=== PATIENT | female | born 1940 | race Caucasian/White ===

== ENCOUNTER 2019-05-20 13:39 | Emergency (ER) | payer OTHER, MEDICARE ==
[~2019-05-20] VITALS: Ht 149.9 cm; Wt 49.9 kg
[2019-05-20] MEDS ORDERED: Ultram50 MG PO (15:30)
== END 2019-05-20 16:32 | disposition home or self-care (01) ==
LOC: ER 13:39
DX: S39.012A Strain of muscle, fascia and tendon of lower back, initial encounter (principal); R07.89 Other chest pain; Z88.8 Allergy status to other drugs, medicaments and biological substances; V43.62XA Car passenger injured in collision with other type car in traffic accident, initial encounter
CPT/HCPCS: 36415; 71046; 72040; 72100; 93005; 93010; 96372; 99284-25; J1885

== ENCOUNTER 2019-05-22 10:43 | Inpatient (IN) | payer OTHER, MEDICARE ==
[~2019-05-22] VITALS: Ht 149.9 cm; Wt 51.1 kg
[~2019-05-22 10:43] MED LIST: Ultram50 MG PO
[2019-05-22 14:38] LABS: BASOPHILS ABSOLUTE AUTO 0.05 K/mm3 (0.00-0.23); BASOPHILS PERCENT AUTO 0 % (0-2); EOSINOPHILS ABSOLUTE AUTO 0.04 K/mm3 (0.00-0.68); EOSINOPHILS PERCENT AUTO 0 % (0-6); Hematocrit 35.4 % (33.0-51.0); Hemoglobin 11.4 g/dL (11.5-16.0); IMMATURE GRAN ABSOLUTE AUTO 0.07 K/mm3 (0.00-0.10); IMMATURE GRAN PERCENT AUTO 1 % (0-1); LYMPHOCYTES PERCENT AUTO 11 % (21-46); MONOCYTES PERCENT AUTO 7 % (4-13); Mean Corpuscular HGB 29.2 pg (26.0-34.0); Mean Corpuscular HGB Conc 32.2 g/dL (31.5-36.5); Mean Corpuscular Volume 91 fL (80-100); Mean Platelet Volume 10.6 fL (9.1-12.4); NEUTROPHILS ABSOLUTE AUTO 11.37 K/mm3 (1.96-9.15); NEUTROPHILS PERCENT AUTO 82 % (41-73); Platelet Count 178 K/mm3 (150-400); RDW Standard Deviation 42.6 fL (35.1-46.3); White Blood Cell Count 13.93 K/mm3 (4.00-11.30)
[2019-05-22 15:00] LABS: Albumin, Blood 3.5 g/dL (3.4-5.0); Albumin/Globulin Ratio 0.9 (0.8-1.8); Bilirubin, Total 0.5 mg/dL (0.1-1.0); Bun/Creatinine Ratio 21.7 (12.0-20.0); Calcium, Blood 9.1 mg/dL (8.5-10.1); Creatinine, Blood 1.06 mg/dL (0.40-1.00); Potassium, Blood 4.5 mmol/L (3.5-5.5); Total Protein, Blood 7.5 g/dL (6.4-8.2)
[2019-05-22 16:31] LABS: Source, Urine Clean Catch
[2019-05-22 17:04] LABS: Bilirubin, Urine Neg (Neg); Blood, Urine 3+ (Neg); Glucose Qualitative, Urine Neg (Neg); Ketones, Urine 1+ (Neg); Leukocyte Esterase, Urine Neg (Neg); Nitrite, Urine Neg (Neg); Protein, Urine 3+ (Neg); Urobilinogen, Urine NORM (Normal)
[2019-05-22 17:10] LABS: Appearance, Urine Clear (Clear); Color, Urine Yellow (P-Yellow)
[2019-05-22 17:16] LABS: Bacteria Many /hpf; Mucus Light (0-Heavy); Red Blood Cells, Urine 0-2 /hpf (0-2); Squamous Epithelial Cells Few /hpf (Few); White Blood Cells, Urine 0-2 /hpf (0-5)
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
--- NOTE | 2019-05-23 18:14 | NUR ---
PT PLEASANT & COOP TODAY. PAIN MANAGED WITH AVAIL MEDS. DID GET UP TO CHAIR TODAY. COMPLAINED OF PAIN BUT DID THE MOVEMEMNT. ALSO DID WELL MOVING BACK TO BED. 1 ASST WITH GAIT BELT. NO OTHER CONCERNS AT THIS TIME.
--- NOTE | 2019-05-24 05:02 | NUR ---
SHIFT SUMMARY: 78 Y/O FEMALE RESTED COMFORTABLY ALL SHIFT, PT C/O BILATERAL HIP PAIN RATED 6/10 WITH NORCO 5/325MG PO X 1 GIVEN TWICE WITH RELIEF FELT, ALERT AND ORIENTED X 2, ABLE TO FOLLOW SIMPLE VERBAL COMMANDS, BED ALARM APPLIED, BED LOW POSITION WITH CALL LIGHT AT SIDE.
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
--- NOTE | 2019-05-25 04:19 | NUR ---
SHIFT SUMMARY AOX4. BED ALARM ON FOR EPISODE OF CONFUSION. CALLED APPROPRIATELY. NO C/O SOB. SOME NAUSEA, NO NAUSEA PRNS GIVEN. PAIN MOSTLY IN HIPS, 1 NORCO GIVEN AT A TIME. WBAT. PT FEELS LIKE PRUNE JUICE IS WORKING, DID NOT WANT ANYMORE OVERNIGHT. NO IV ACCESS. SCATTERED BRUISING TO LEGS AND ARMS. VSS ON RA. PLAN TO DC SUNDAY TO REHAB.
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
--- NOTE | 2019-05-26 05:19 | NUR ---
SHIFT SUMMARY AOX4. LS CLEAR, DENIES SOB. NO C/O NAUSEA. PAIN 8/10 IN R LEG. 1 NORCO GIVEN @ 1915, 0000, AND 0500. WBAT - 1 ASSIST. BRUISING TO ARMS AND LEGS UNCHANGED. NO IV ACCESS. XRAY DONE OF LOWER R LEG PER FAMILY REQUEST. BM YESTERDAY. PLAN IS TO DC TO REHAB TODAY.
[2019-05-26] MEDS ORDERED: HYDR1TAB94 PO (09:11)
[2019-05-26] MEDS ORDERED: MIRALAX17 GM PO (09:12)
--- NOTE | 2019-05-26 11:29 | NUR ---
REPORT CALLED TO DORA CARVALHO RN. ALISON/CONCERNS ANSWERED. PT TO BE TRANSPORTED AT 1130AM. WILL BE AVAILABLE UNTIL 1900 IF FURTHER QUESTIONS ARISE.
== END 2019-05-26 11:48 | DRG 536 ==
LOC: ER 10:43 → SURS 10:44 → MEDS 10:44 → SURS 17:34 → MEDS 17:34 → ER 17:34 → MEDS 17:34 → SURS 21:07 → MEDS 05-23 16:13 → ENPENDDIS 05-26 08:16 → MEDS 05-26 11:48
PROVIDERS: Emergency Medicine; ADMIT Surgery
DX: S32.511A Fracture of superior rim of right pubis, initial encounter for closed fracture (principal); S32.19XA Other fracture of sacrum, initial encounter for closed fracture; Y99.8 Other external cause status; S00.31XA Abrasion of nose, initial encounter; F03.90 Unspecified dementia, unspecified severity, without behavioral disturbance, psychotic disturbance, mood disturbance, and anxiety; E27.9 Disorder of adrenal gland, unspecified; K80.20 Calculus of gallbladder without cholecystitis without obstruction; K59.00 Constipation, unspecified; V49.49XA Driver injured in collision with other motor vehicles in traffic accident, initial encounter; Y93.89 Activity, other specified; Y92.411 Interstate highway as the place of occurrence of the external cause
CPT/HCPCS: 51701; 70450; 73522; 73560-RT; 73590; 74176; 80053; 81001; 85025; 87086; 96365-59; 96375-59; 97110; 97116; 97162; 97530; 99285-25; A9270; A9270-GY; G0378; J0696; J1650; J2405; J3010

== ENCOUNTER 2024-06-16 11:45 | Inpatient (IN) | payer MEDICARE ==
[~2024-06-16] VITALS: Ht 154.9 cm; Wt 45.0 kg
[~2024-06-16 11:45] MED LIST changes: +HYDR1TAB94 PO; +MIRALAX17 GM PO
[2024-06-16 13:39] LABS: BASOPHILS ABSOLUTE AUTO 0.09 K/mm3 (0.00-0.23); BASOPHILS PERCENT AUTO 1 % (0-2); EOSINOPHILS ABSOLUTE AUTO 0.36 K/mm3 (0.00-0.68); EOSINOPHILS PERCENT AUTO 2 % (0-6); Hematocrit 31.4 % (33.0-51.0); Hemoglobin 9.7 g/dL (11.5-16.0); IMMATURE GRAN ABSOLUTE AUTO 0.07 K/mm3 (0.00-0.10); IMMATURE GRAN PERCENT AUTO 0 % (0-1); LYMPHOCYTES ABSOLUTE AUTO 0.86 K/mm3 (0.84-5.20); LYMPHOCYTES PERCENT AUTO 6 % (21-46); MONOCYTES ABSOLUTE AUTO 0.81 K/mm3 (0.16-1.47); MONOCYTES PERCENT AUTO 5 % (4-13); Mean Corpuscular HGB 22.8 pg (26.0-34.0); Mean Corpuscular HGB Conc 30.9 g/dL (31.5-36.5); Mean Corpuscular Volume 74 fL (80-100); Mean Platelet Volume 9.5 fL (9.1-12.4); NEUTROPHILS ABSOLUTE AUTO 13.49 K/mm3 (1.96-9.15); NEUTROPHILS PERCENT AUTO 86 % (41-73); Platelet Count 597 K/mm3 (150-400); RDW Coefficient Variation 17.1 % (11.7-14.2); RDW Standard Deviation 44.4 fL (35.1-46.3); Red Blood Cell Count 4.26 M/mm3 (3.80-5.20); White Blood Cell Count 15.68 K/mm3 (4.00-11.30)
[2024-06-16 13:43] LABS: Albumin, Blood 2.7 g/dL (3.4-5.0); Albumin/Globulin Ratio 0.5 (0.8-1.8); Bilirubin, Total 0.3 mg/dL (0.1-1.0); Bun/Creatinine Ratio 22.6 (12.0-20.0); Calcium, Blood 10.7 mg/dL (8.5-10.1); Creatinine, Blood 1.55 mg/dL (0.40-1.00); Potassium, Blood 3.9 mmol/L (3.5-5.5); Total Protein, Blood 7.7 g/dL (6.4-8.2)
[2024-06-16] MEDS ORDERED: Lactated Ringer's 1,000 ML IV ONE (18:30)
[2024-06-16 19:06] LABS: Source, Urine Clean Catch
[2024-06-16 19:22] LABS: Appearance, Urine Hazy (Clear); Bilirubin, Urine Neg (Neg); Blood, Urine 2+ (Neg); Color, Urine Yellow (P-Yellow); Glucose Qualitative, Urine Neg (Neg); Ketones, Urine 3+ (Neg); Leukocyte Esterase, Urine 1+ (Neg); Nitrite, Urine Neg (Neg); Protein, Urine 2+ (Neg); Urobilinogen, Urine NORM (Normal)
[2024-06-16 19:28] LABS: Amorphous Light (0-Heavy); Bacteria Few /hpf; Hyaline Casts 0-2 /lpf (0-2); Red Blood Cells, Urine 0-2 /hpf (0-2); Renal Epithelial Rare /hpf (0-Rare); Squamous Epithelial Cells Rare /hpf (Few)
[2024-06-16 19:52] LABS: Influenza A, PCR NEGATIVE (NEGATIVE); Influenza B, PCR NEGATIVE (NEGATIVE); Resp Syncytial Virus, PCR NEGATIVE (NEGATIVE); SARS-Cov-2 (COVID-19) PCR, MMC NEGATIVE (NEGATIVE)
[2024-06-16] MEDS ORDERED: Ondansetron HCl 2 MG / ML 2ML Vial IV PRN (22:35)
[2024-06-16] MEDS ORDERED: FLU VACC TS2024-25(6MOS UP)/PF 45 MCG/0.5 ML SYRINGE IM SCH (22:35)
[2024-06-16] MEDS ORDERED: NS 1,000 ML IV SCH (22:35)
[2024-06-16 23:38] VITALS: BP 141/51
--- NOTE | 2024-06-17 05:01 | NUR ---
ADMIT NOTE FOR 06/16/24 3323 REPORT WAS RECEIVED FROM THE ER. PT WAS BROUGHT DOWN ON A GURNEY AND TRANSFERRED OVER TO THE BED. PTS NIECE CAME DOWN WITH HER. PT ALERT ORIENTED X 4. PTS NIECE STATED THAT SHE DOES HAVE A HX OF DEMENTIA AND DOES GET CONFUSED AND FORGETFUL AT TIMES. SHE WAS STARTED ON NS AT 75. WE CHANGED HER PUREWICK WHEN SHE GOT HERE R/T SHES HAVING CONTINUOUS BLEEDING COMING FROM HER VAGINA. HER AND HER NIECE WERE ORIENTED TO THE ROOM AND THE STAFF. SHE HAS EXCORIATION TO HER SALOME AREA AND BUTTOCKS
--- NOTE | 2024-06-17 05:05 | NUR ---
SHIFT SUMMARY PT ALERT ORIENTED X 4 WITH FORGETFULNESS. VSS ON RA SATTING AT 97%. SHE IS A VEGETARIAN AND ON A VEGETARIAN DIET. SHE HAS A PALLIATIVE CARE CONSULT ORDER IN. SHE HAS A HISTORY OF DEMENTIA. HER CT SCAN OF HER ABDOMEN SHOWED A LARGE UTERINE MASS. SHES HAVING BLEEDING FROM HER VAGINA. SHE HAS A PUREWICK IN PLACE. CONTINUES ON NS AT 75. DID GET UP TO THE COMMODE AND TRIED TO HAVE A BM BUT WAS UNABLE TO. SHE LIVES ALONE AND HER NIECE STATED THAT SHE WILL NEED TO BE PLACED. SHES UNSAFE TO GO BACK HOME. SHE HAS EXCORIATION TO HER SALOME AREA AND BUTTOCKS. BARRIER CARE WAS APPLIED TO THE AREA. SHE DID EAT A YOGURT AND DRANK SOME ENSURE. LABS TO BE DONE THIS SHIFT. RESTING IN BED AT THIS TIME WITH CALL LIGHT IN REACH AND BED ALARM ON.
[2024-06-17 05:35] LABS: BASOPHILS ABSOLUTE AUTO 0.08 K/mm3 (0.00-0.23); BASOPHILS PERCENT AUTO 1 % (0-2); EOSINOPHILS ABSOLUTE AUTO 0.67 K/mm3 (0.00-0.68); EOSINOPHILS PERCENT AUTO 5 % (0-6); Hematocrit 24.8 % (33.0-51.0); Hemoglobin 7.8 g/dL (11.5-16.0); IMMATURE GRAN ABSOLUTE AUTO 0.06 K/mm3 (0.00-0.10); IMMATURE GRAN PERCENT AUTO 1 % (0-1); LYMPHOCYTES ABSOLUTE AUTO 1.53 K/mm3 (0.84-5.20); LYMPHOCYTES PERCENT AUTO 12 % (21-46); MONOCYTES ABSOLUTE AUTO 1.13 K/mm3 (0.16-1.47); MONOCYTES PERCENT AUTO 9 % (4-13); Mean Corpuscular HGB 22.8 pg (26.0-34.0); Mean Corpuscular HGB Conc 31.5 g/dL (31.5-36.5); Mean Corpuscular Volume 73 fL (80-100); Mean Platelet Volume 9.1 fL (9.1-12.4); NEUTROPHILS ABSOLUTE AUTO 9.79 K/mm3 (1.96-9.15); NEUTROPHILS PERCENT AUTO 74 % (41-73); Platelet Count 455 K/mm3 (150-400); RDW Standard Deviation 43.3 fL (35.1-46.3); RETICULOCYTE ABSOLUTE 0.0345 M/mm3 (0.0200-0.1100); RETICULOCYTE COUNT PERCENT 1.01 % (0.50-2.50); Red Blood Cell Count 3.42 M/mm3 (3.80-5.20); White Blood Cell Count 13.26 K/mm3 (4.00-11.30)
[2024-06-17 06:04] VITALS: BP 125/52
[2024-06-17 06:18] LABS: Percent Saturation 9.5 % (15.0-50.0)
[2024-06-17 06:19] LABS: Albumin, Blood 2.2 g/dL (3.4-5.0); Albumin/Globulin Ratio 0.6 (0.8-1.8); Bilirubin, Total 0.2 mg/dL (0.1-1.0); Bun/Creatinine Ratio 21.3 (12.0-20.0); Calcium, Blood 9.5 mg/dL (8.5-10.1); Creatinine, Blood 1.36 mg/dL (0.40-1.00); Potassium, Blood 3.6 mmol/L (3.5-5.5); Total Protein, Blood 6.2 g/dL (6.4-8.2)
[2024-06-17 07:31] VITALS: BP 126/47
--- NOTE | 2024-06-17 15:39 | NUR ---
Met with pt's niece and nephew Barb and Alessio in palliative care office. They expressed concerns regarding pt's living situation, especially with the rapid decline she has recently experienced. They report the patient lives alone in one of the homes Barb inherited from her now father, pt's brother. Barb reports the patient had been living independently until "about a month ago" when she began having N/V, fatigue, weight and memory loss. CT of abdomen and pelvis shows a uterine mass pressing on R ureter, causing hydronephrosis. The patient also has anemia currently, along with new onset of confusion. Barb reports the patient having little income and no assets, and will call today to set up a jail care financial telephone interview. Dr. Dewitt plans to change pt from observation to inpatient status due to vaginal bleeding and anemia.
[2024-06-17] MEDS ORDERED: Sod Ferric Gluc Complx/Sucrose 125 MG in NS 100 ML IV SCH (15:55)
[2024-06-17 16:20] VITALS: BP 134/52
[2024-06-17 17:45] LABS: Hematocrit 25.3 % (33.0-51.0)
--- NOTE | 2024-06-17 17:47 | NUR ---
SHIFT SUMMARY: PT AOX4 WITH SLIGHT CONFUSION AND HARD OF HEARING. ABLE TO STAND PIVOT WITH 1PA AND STATES SHES GETTING MORE STRENGTH BACK. PT ADMITTED FOR THE VAGINAL BLEED AND KEY ACCOUNT DIRECTOR CONSULT CALLED THIS EVENING. WAITING FOR FOLLOWUP. PLAN IS FOR PT OT TO EVAL TOMORROW AND FIND HER A LIVING SITUATION WHILE THE FAMILY IS AWAY. PT VERY PLEASANT AND TOLERATING CARE WELL. WILL CALL APPROPRIATELY. FAMILY HAS BEEN IN AND OUT AT BEDSIDE. BED IN LOWEST POSITION, CALL LIGHT IN REACH. CONTINUING CARE.
--- NOTE | 2024-06-17 17:56 | NUR ---
THIS COMMISSIONER OF OFFICIALS HAS REVIEWED AND AGREES WITH ALL NOTES AND ASSESSMENTS BY OLGA PETER.
--- NOTE | 2024-06-17 19:14 | NUR ---
Dr. Joaquin came in to see the pt and called and spoke with Dr. Dewitt. They decided that its not urgent and that Dr. Joaquin will talk to family and find out what to do from here. He also stated that he wants to talk to the oncologist to see what he should do
[2024-06-17 20:33] VITALS: BP 119/96
[2024-06-18 02:38] VITALS: BP 146/62
--- NOTE | 2024-06-18 05:21 | NUR ---
SHIFT SUMMARY PT ALERT ORIENTED X 4 BUT IS FORGETFUL. CAN VERBALIZE NEEDS. SHES BEEN INC AND CONT OF URINE. SHE STILL HAS SOME BLEEDING BUT IT HAS GOTTEN COMPONENT ENGINEER. NO C/O PAIN THIS SHIFT. SHE HAS EXCORIATION TO HER SALOME AREA AND BUTTOCKS. BARRIER CREAM WAS APPLIED. SHE CONTINUES ON IRON INFUSIONS QDAY X [address] PADILLA CAME AND SAW HER LAST NIGHT AND STATED THAT HE WILL CALL ONCOLOGY TODAY AND SPEAK WITH THE FAMILY TODAY TO SEE WHAT THEY WOULD LIKE TO DO. VSS ON RA SATTING AT 100%. SHES BEEN REQUESTING FOOD ALL NIGHT AND IS EATING WELL. SHE TESTED POSITIVE FOR THE NOROVIRUS YESTERDAY AND SHES ON ISOLATION. SHE HAS A UTERINE MASS THATS DEPRESSING THE RT URETER THATS CAUSING HER TO BLEED. SHES RESTING IN BED AT THIS TIME WITH CALL LIGHT IN REACH
[2024-06-18 05:54] LABS: BASOPHILS ABSOLUTE AUTO 0.08 K/mm3 (0.00-0.23); BASOPHILS PERCENT AUTO 1 % (0-2); EOSINOPHILS PERCENT AUTO 9 % (0-6); Hematocrit 23.8 % (33.0-51.0); Hemoglobin 7.5 g/dL (11.5-16.0); IMMATURE GRAN ABSOLUTE AUTO 0.07 K/mm3 (0.00-0.10); IMMATURE GRAN PERCENT AUTO 1 % (0-1); LYMPHOCYTES ABSOLUTE AUTO 1.42 K/mm3 (0.84-5.20); LYMPHOCYTES PERCENT AUTO 10 % (21-46); MONOCYTES ABSOLUTE AUTO 1.39 K/mm3 (0.16-1.47); MONOCYTES PERCENT AUTO 10 % (4-13); Mean Corpuscular HGB 23.4 pg (26.0-34.0); Mean Corpuscular HGB Conc 31.5 g/dL (31.5-36.5); Mean Corpuscular Volume 74 fL (80-100); Mean Platelet Volume 8.5 fL (9.1-12.4); NEUTROPHILS ABSOLUTE AUTO 9.85 K/mm3 (1.96-9.15); NEUTROPHILS PERCENT AUTO 70 % (41-73); Platelet Count 416 K/mm3 (150-400); RDW Standard Deviation 45.7 fL (35.1-46.3); Red Blood Cell Count 3.21 M/mm3 (3.80-5.20); White Blood Cell Count 14.01 K/mm3 (4.00-11.30)
[2024-06-18 06:33] LABS: Bun/Creatinine Ratio 20.2 (12.0-20.0); Calcium, Blood 9.2 mg/dL (8.5-10.1); Creatinine, Blood 1.24 mg/dL (0.40-1.00); Potassium, Blood 3.7 mmol/L (3.5-5.5)
[2024-06-18 08:17] VITALS: BP 132/50
[2024-06-18 13:19] LABS: International Normalized Ratio 1.08; Prothrombin Time Results 11.5 Sec (9.7-11.5)
[2024-06-18 13:47] LABS: Cancer Antigen 125 71.7 U/mL (1.5-35.0); Cancer Antigen 19-9 47.7 U/mL (2.0-37.0)
[2024-06-18 15:30] VITALS: BP 142/57
--- NOTE | 2024-06-18 17:16 | NUR ---
SHIFT SUMMARY PT AOX3/4, COOPERATIVE, ABLE TO MAKE NEEDS KNOWN. TOLERATED IV IRON APPROPRIATELY. PT IS HARD OF HEARING. TRANFERRED VIA 1P-2P ASSIST TO COMMODE. STILL HAS SCNT BLOOD IN URINE AND ATTENDS. NO ACUTE EVENTS TOOK PLACE. BED IN LOWEST POSITION, CALL LIGHT WITH REACH. BED/CHAIR ALARM ACTIVE.
[2024-06-18 19:31] VITALS: BP 150/56
[2024-06-18 20:42] LABS: Hematocrit 24.6 % (33.0-51.0); Hemoglobin 7.7 g/dL (11.5-16.0)
[2024-06-18] MEDS ORDERED: Docusate Sodium 100 MG Cap PO SCH (21:00)
[2024-06-18] MEDS ORDERED: Sennosides 8.6 MG Tab PO SCH (21:00)
[2024-06-19] VITALS (7 sets, daily range): BP systolic 136–155; BP diastolic 52–59
--- NOTE | 2024-06-19 04:45 | NUR ---
SHIFT SUMMARY 83 YR F Admitted on 06/17/24. DNR. NO ACUTE CHANGES THIS SHIFT. PT'S GINGER AT BEDSIDE AT BEGINNING OF SHIFT. SHE STATED TO THIS NURSE THAT DURING THE PREVIOUS PARIMUTUEL CLERK SHE HAD A HARD TIME LOCATING PT'S CALL LIGHT AND EVENTUALLY FOUND IT "TUCKED" BEHIND THE BED IN A PLACE THAT SHE FELT IT WAS INTENTIONALLY PLACED. THE CALL LIGHT WAS OUT OF THE PT'S REACH AND SHE WOULD NOT HAVE BEEN ABLE TO FIND IT ON HER OWN. PT'S GINGER WANTED REASSURANCE THAT HER AUNTS CALL LIGHT BE WITHIN HER REACH AT ALL TIMES. THIS NURSE ASSURED HER THAT IT WOULD BE. PT HAD AN UNEVENTFUL NIGHT AND APPEARS TO HAVE RESTED/SLEPT COMFORTABLY THROUGHOUT THE NIGHT. NO C/O PAIN OR DISCOMFORT THIS SHIFT. BED IS IN LOW POSITION AND CALL LIGHT IN REACH. IN LOW POAITION AND CALL LIGHT IN REACH.
[2024-06-19 05:54] LABS: BASOPHILS ABSOLUTE AUTO 0.08 K/mm3 (0.00-0.23); BASOPHILS PERCENT AUTO 1 % (0-2); EOSINOPHILS ABSOLUTE AUTO 1.64 K/mm3 (0.00-0.68); EOSINOPHILS PERCENT AUTO 11 % (0-6); Hematocrit 24.6 % (33.0-51.0); Hemoglobin 7.5 g/dL (11.5-16.0); IMMATURE GRAN ABSOLUTE AUTO 0.12 K/mm3 (0.00-0.10); IMMATURE GRAN PERCENT AUTO 1 % (0-1); LYMPHOCYTES ABSOLUTE AUTO 2.29 K/mm3 (0.84-5.20); LYMPHOCYTES PERCENT AUTO 16 % (21-46); MONOCYTES ABSOLUTE AUTO 1.32 K/mm3 (0.16-1.47); MONOCYTES PERCENT AUTO 9 % (4-13); Mean Corpuscular HGB 22.9 pg (26.0-34.0); Mean Corpuscular HGB Conc 30.5 g/dL (31.5-36.5); Mean Corpuscular Volume 75 fL (80-100); Mean Platelet Volume 9.1 fL (9.1-12.4); NEUTROPHILS ABSOLUTE AUTO 9.03 K/mm3 (1.96-9.15); NEUTROPHILS PERCENT AUTO 62 % (41-73); Platelet Count 431 K/mm3 (150-400); RDW Coefficient Variation 17.4 % (11.7-14.2); RDW Standard Deviation 47.1 fL (35.1-46.3); Red Blood Cell Count 3.27 M/mm3 (3.80-5.20); White Blood Cell Count 14.48 K/mm3 (4.00-11.30)
[2024-06-19 06:05] LABS: Bun/Creatinine Ratio 21.7 (12.0-20.0); Calcium, Blood 9.3 mg/dL (8.5-10.1); Creatinine, Blood 1.2 mg/dL (0.40-1.00); Potassium, Blood 4.2 mmol/L (3.5-5.5)
--- NOTE | 2024-06-19 15:13 | NUR ---
ATTEMPTED TO FILL OUT A POLST FORM WITH PT AND FAMILY. PT HAD JUST LEFT THE ROOM FOR A PROCEDURE. NIECE, ALANA CASE WAS EXITING ROOM AND DEFAULTED CONVERSATION TO PT'S NEPHEW, SHERYL CSAE. THIS PC RN EDUCATED NEPHEW ON CPR VS DNR AND THE THREE LEVELS OF MEDICAL INTERVENTIONS. NEPHEW REQUEST HOLDING OFF ON DECISION MAKING UNTIL PT IS ABLE TO SPEAK FOR HERSELF. SHERYL ALSO REPORTS PT HAS FILLED OUT PAPERWORK FOR WHOLE BODY DONATION/SCIENCE. THERE ARE THREE SCIENCE BODY DONATION PROGRAMS KNOWN TO THIS DENTIST/OWNER. 1. [place] BODY GIFT, NO RECORDS OF PT ON FILE 2. [facility] BODY DONATION PROGRAM, NO RECORDS OF PT ON FILE 3. [place] BIO-GIFT [place] BIO-GIFT ANATOMICAL, NO RECORDS OF PT ON FILE PLAN IS FOR PC TO ATTEMPT FILLING OUT A NEW POLST WITH PT/FAMILY TOMORROW 06/20/24. LEFT MS FOR SHERYL WITH UPDATE ON RESULTS OF CALLS TO WHOLE BODY DONATION PROGRAMS. PHONE NUMBER FOR SHERYL CASE IS [phone]
--- NOTE | 2024-06-19 16:26 | NUR ---
SPOKE TO ANGIE OF ULTRASOUND, ASKED HIM TO CALL MD TO PLACE ORDER FOR LAB TO RUN BIOPSY SPECIMEN. GAVE ANGIE JENKINS PHONE NUMBER.
--- NOTE | 2024-06-19 16:35 | NUR ---
SHIFT SUMMARY PT AO4, COOPERATIVE, ABLE TO MAKE NEEDS KNOWN. DID HAVE BOWEL MOVEMENT TODAY, DOCUMENTED BY SECURITY ADMINISTRATOR. PT TRANSFERRED VIA 1P ASSIST TO COMMODE. TRANSFUSED IRON TODAY, HAD TO REPLACE IV AFTERWARDS DOCUMENTED. WENT DOWN FOR BIOPSY, RETURNED PLEASANTLY. BED IN LOWEST POSITION, CALL LIGHT WITHIN REACH.
[2024-06-19] MEDS ORDERED: NS 500 ML IV SCH (17:00)
[2024-06-20 02:33] VITALS: BP 147/57
--- NOTE | 2024-06-20 05:04 | NUR ---
SHIFT SUMMARY 83 YR F ADMITTED ON 06/17/24. DNR. NO ACUTE CHANGES THIS SHIFT. PT HAS BEEN PLEASANT AND COOPERATIVE WITH CARE. SHE HAS SOME CONFUSION BUT IS EASILY REDIRECTABLE. 1 UNIT PRBC INFUSING AT SHIFT CHANGE. PT TOLERATED WELL W/ NO C/O. SHE HAD A LARGE BM THIS SHIFT. PT IS ASKING TO GO HOME. HER NEICE EXPLAINED TO HER TODAY THAT IT MAY TAKE A FEW DAYS THEY NEED TO MAKE SURE THERE IS SOMEONE THERE TO TAKE CARE OF HER. BED IN LOW POSITION AND CALL LIGHT IN REACH.
[2024-06-20 05:38] LABS: BASOPHILS ABSOLUTE AUTO 0.12 K/mm3 (0.00-0.23); BASOPHILS PERCENT AUTO 1 % (0-2); EOSINOPHILS ABSOLUTE AUTO 2.09 K/mm3 (0.00-0.68); EOSINOPHILS PERCENT AUTO 12 % (0-6); Hematocrit 31.1 % (33.0-51.0); Hemoglobin 10.1 g/dL (11.5-16.0); IMMATURE GRAN ABSOLUTE AUTO 0.22 K/mm3 (0.00-0.10); IMMATURE GRAN PERCENT AUTO 1 % (0-1); LYMPHOCYTES ABSOLUTE AUTO 2.73 K/mm3 (0.84-5.20); LYMPHOCYTES PERCENT AUTO 16 % (21-46); MONOCYTES ABSOLUTE AUTO 1.49 K/mm3 (0.16-1.47); MONOCYTES PERCENT AUTO 9 % (4-13); Mean Corpuscular HGB 25.2 pg (26.0-34.0); Mean Corpuscular HGB Conc 32.5 g/dL (31.5-36.5); Mean Corpuscular Volume 78 fL (80-100); Mean Platelet Volume 8.9 fL (9.1-12.4); NEUTROPHILS ABSOLUTE AUTO 10.19 K/mm3 (1.96-9.15); NEUTROPHILS PERCENT AUTO 61 % (41-73); Platelet Count 394 K/mm3 (150-400); RDW Coefficient Variation 18.1 % (11.7-14.2); RDW Standard Deviation 49.9 fL (35.1-46.3); Red Blood Cell Count 4.01 M/mm3 (3.80-5.20); White Blood Cell Count 16.84 K/mm3 (4.00-11.30)
[2024-06-20 07:28] VITALS: BP 152/56
[2024-06-20] MEDS ORDERED: Sen-O-Tab8.6 MG PO (13:42)
[2024-06-20] MEDS ORDERED: COLACE100 MG PO (13:42)
[2024-06-20 14:23] LABS: Influenza A, PCR NEGATIVE (NEGATIVE); Influenza B, PCR NEGATIVE (NEGATIVE); Resp Syncytial Virus, PCR NEGATIVE (NEGATIVE); SARS-Cov-2 (COVID-19) PCR, MMC NEGATIVE (NEGATIVE)
--- NOTE | 2024-06-20 14:34 | NUR ---
ATTEMPTED TO GIVE REPORT TO NURSE AT [facility] WITH NO ANSWER AFTER WAITING ON HOLD FOR 20MIN.
--- NOTE | 2024-06-20 15:17 | NUR ---
DISCHARGE SUMMARY PT DC THIS SHIFT. DC INSTRUCTION GONE OVER WITH PT AND PT GINGER WHOM BOTH STATED UNDERSTANDING. PT LEFT VIA WHEELCHAIR BY TRANSPORT SERVICES. CALLED AND GAVE REPORT TO TRI ESPINOZA AT [facility].
== END 2024-06-20 15:10 | DRG 749 ==
LOC: ER 11:45 → MEDS 11:46 → ERHOLD 11:46 → MEDS 23:21 → ENPENDDIS 06-20 13:41 → MEDS 06-20 15:10
PROVIDERS: Hospitalist; Internal Medicine; Physician Assistant; Student in an Organized Health Care Education/Training Program; ADMIT Internal Medicine
PROC: 07BH3ZX Excision of Right Inguinal Lymphatic, Percutaneous Approach, Diagnostic (ICD-10-PCS; principal; 2024-06-20)
DX: C55 Malignant neoplasm of uterus, part unspecified (principal); C77.4 Secondary and unspecified malignant neoplasm of inguinal and lower limb lymph nodes; D62 Acute posthemorrhagic anemia; N17.9 Acute kidney failure, unspecified; E87.1 Hypo-osmolality and hyponatremia; N13.30 Unspecified hydronephrosis; R29.6 Repeated falls; Z66 Do not resuscitate; K59.00 Constipation, unspecified; I10 Essential (primary) hypertension; D50.9 Iron deficiency anemia, unspecified; E83.52 Hypercalcemia; R59.9 Enlarged lymph nodes, unspecified; N85.9 Noninflammatory disorder of uterus, unspecified; R53.1 Weakness; E86.0 Dehydration; Z88.8 Allergy status to other drugs, medicaments and biological substances; Z79.891 Long term (current) use of opiate analgesic; Z79.899 Other long term (current) drug therapy; Z98.890 Other specified postprocedural states
CPT/HCPCS: 0241U; 36415; 36430; 38505; 74177; 76942; 80048; 80053; 81001; 82378; 82728; 83540; 83550; 83880; 85014; 85018; 85025; 85045; 85610; 86301; 86304; 86850; 86900; 86901; 86923; 87086; 88305; 93005; 93010; 96360-59; 96361; 97110; 97162; 97165; 97530; 97535; 99285-25; A9270; G0378; J2916; J7030; J7120; P9016; P9612; Q9967